=== PATIENT | female | born 1940 | race Caucasian/White ===

== ENCOUNTER 2020-09-03 09:56 | Emergency (ER) | payer MEDICARE, OTHER ==
[~2020-09-03] VITALS: Ht 162.6 cm; Wt 65.8 kg
--- NOTE | 2020-09-03 10:55 | Emergency Department Note ---
History of Present Illnes History of Present Illness Chief Complaint: Extremity Trauma/Pain History of Present Illness This is a 80 year old female fell yesterday pulling weeds and fell to ground hitting head and right hand/wrist. +bruising noted and swelling. no loc. aaox4. ambulatory. +radial pulse. able to move fingers. Historian: Patient, Family Member Arrival Mode: Car [employer] Supervisor Required: No Onset (how long ago): day(s) Location: RIGHT HAND/WRIST Quality: PAIN Radiation: Reports non-radiation Severity: moderate Onset quality: sudden Timing of current episode: constant Progression: unchanged Chronicity: new Context: Denies recent illness Relieving factors: none Exacerbating factors: none Associated symptoms: Reports denies other symptoms Past Medical/Family History Physician Review I have reviewed the patient's past medical and family history. Any updates have been documented here. Past Medical History Recent Fever: No Clinical Suspicion of Infectio: No New/Unexplained Change in Ment: No Past Medical History: Hypothyroidism, Hyperlipedemia Other Surgery: breast augmentation Social History Smoking Cessation: Never Smoker Counseling Performed: No Alcohol Use: None Any Illegal Drug Use: No TB Exposure/Symptoms: No Physically hurt or threatened: No Family History Family history of heart diseas: No Other Any Pre-Existing Lines (PICC,: No Review of Systems Review of Systems Constitutional: Reports no symptoms EENTM: Reports no symptoms Cardiovascular: Reports no symptoms Respiratory: Reports no symptoms Gastrointestinal: Reports no symptoms Genitourinary: Reports no symptoms Musculoskeletal: Reports as per HPI Integumentary: Reports no symptoms Neurological: Reports no symptoms Psychological: Reports no symptoms Endocrine: Reports no symptoms Hematological/Lymphatic: Reports no symptoms Physical Exam Related Data Allergies: Coded Allergies: No Known Allergies (Unverified , 09/03/20) Triage Vital Signs Vital Signs Date Time Temp Pulse Resp B/P (MAP) Pulse Ox O2 Delivery O2 Flow Rate FiO2 09/03/20 10:12 97.2 74 18 139/85 98 Room Air Vital signs reviewed: Yes Physical Exam CONSTITUTIONAL Constitutional: Present well-developed, Present well-nourished HENT HENT: Present normocephalic, Present atraumatic, Present oropharynx clear/moist, Present nose normal HENT L/R: Present left ext ear normal, Present right ext ear normal EYES Eyes: Reports PERRL, Reports conjunctivae normal NECK Neck: Present ROM normal PULMONARY Pulmonary: Present effort normal, Present breath sounds normal CARDIOVASCULAR Cardiovascular: Present regular rhythm, Present heart sounds normal, Present capillary refill normal, Present normal rate GASTROINTESTINAL Abdominal: Present soft, Present nontender, Present bowel sounds normal GENITOURINARY Genitourinary: Present exam deferred SKIN Skin: Present warm, Present dry MUSCULOSKELETAL Musculoskeletal: Present other (RIGHT HAND WITH MILD ECCHYMOSIS DORSAL SURFACE, MILD SWELLING OF WRIST WITH TTP AND DECR ROM, N/V INTACT) NEUROLOGICAL Neurological: Present alert, Present oriented x 3, Present no gross motor or sensory deficits PSYCHOLOGICAL Psychological: Present mood/affect normal, Present judgement normal Results Imaging Imaging results reviewed: Yes Impressions Procedure: [id number] DX/HAND 3+ VIEWS RIGHT Exam Date: 09/03/20 Exam Time: 1053 REPORT STATUS: Signed X-ray 3 views of the wrist. 3 views of the hand. HISTORY: Wrist pain after fall. COMPARISON: None available. FINDINGS: Bone/joints: There is mildly displaced fracture of the distal radius with no clear evidence of intra-articular extension. There is widening of the distal radioulnar joint. There is chondrocalcinosis best seen at the ulnocarpal joint. Soft tissues: There is regional soft tissue swelling. IMPRESSION: 1. Mildly displaced distal radius fracture with no clear evidence of intra-articular extension. 2. Widened distal radioulnar joint can be due to acute ligamentous injury versus chronic ligamentous injury given presence of chondrocalcinosis usually seen with crystalline arthropathy. Signed by: Abimael Jarrell MD on 09/03/2020 11:31 AM Procedures Orthopedic Splinting/Casting Injury: Injury #1 Side: right Upper exremity injury location: wrist Upper extremity immobilizer: aluminum form splint Assessment & Plan Medical Decision Making MDM FALL - CT BRAIN/C-SPINE, RIGHT HAND/WRIST XRAYS R/O CEREBRAL BLEED, CERV FX, WRIST/HAND FX Reassessment Reassessment DC HOME, OTC IBUPROFEN, TYL #3 UD, SPLINT, F/U ORTHO DR BENITEZ Assessment & Plan Final Impression: (1) Distal radius fracture, right Depart Disposition: HOME, SELF-CARE Last Vital Signs Date Time Temp Pulse Resp B/P (MAP) Pulse Ox O2 Delivery O2 Flow Rate FiO2 09/03/20 10:12 97.2 74 18 139/85 98 Room Air MICHELLE TAN MD Sep 03, 2020 10:55
--- NOTE | 2020-09-03 11:35 | Diagnostic Imaging Report ---
X-ray 3 views of the wrist. 3 views of the hand. HISTORY: Wrist pain after fall. COMPARISON: None available. FINDINGS: Bone/joints: There is mildly displaced fracture of the distal radius with no clear evidence of intra-articular extension. There is widening of the distal radioulnar joint. There is chondrocalcinosis best seen at the ulnocarpal joint. Soft tissues: There is regional soft tissue swelling. IMPRESSION: 1. Mildly displaced distal radius fracture with no clear evidence of intra-articular extension. 2. Widened distal radioulnar joint can be due to acute ligamentous injury versus chronic ligamentous injury given presence of chondrocalcinosis usually seen with crystalline arthropathy. Signed by: Abimael Jarrell MD on 09/03/2020 11:31 AM
--- NOTE | 2020-09-03 11:38 | Diagnostic Imaging Report ---
EXAMINATION: Head CT HISTORY: Possible stroke, s/p fall 1 day ago. COMPARISON: None. TECHNIQUE: Helical axial images of the head were obtained. Reformatted coronal and sagittal images from the axial data. Dose modulation, iterative reconstruction, and/or weight based adjustment of the mA/kV was utilized to reduce the radiation dose to as low as reasonably achievable. FINDINGS: Parenchyma: 1. Few scattered and periventricular white matter hypodensities, most likely chronic microvascular changes. 2. No mass or hemorrhage. No CT evidence of acute territorial vascular insult. Extra-axial spaces:No abnormal density. No extra-axial fluid collections Brain volume: Normal for age. Ventricles: No hydrocephalus or displacement. Arteries: No density suggestive of thrombus. Dural sinuses: No abnormal density. Foramen magnum: No mass, Chiari malformation, or basilar invagination. Sella: No obvious mass. Paranasal/mastoid sinuses: Imaged portions unremarkable. Skull/Scalp: No lytic or blastic lesions. No fractures. IMPRESSION: 1. No acute intracranial hemorrhage or cortical infarct. 2. Mild chronic microvascular ischemic changes. Signed by: Dr. Justyna Cespedes M.D. on 09/03/2020 11:35 AM
--- NOTE | 2020-09-03 11:48 | Diagnostic Imaging Report ---
EXAMINATION: CT of the cervical spine HISTORY: Status post fall 1 day ago. COMPARISON: None available TECHNIQUE: Multidetector helical axial images were obtained without contrast from the foramen magnum to T1. Dose modulation, iterative reconstruction, and/or weight based adjustment of the mA/kV was utilized to reduce the radiation dose to as low as reasonably achievable. FINDINGS: Alignment: Straightening of the cervical lordosis which may be related to muscle spasm or positional. Minimal anterolisthesis of C7 on T1. Soft tissues: Normal Vertebrae: Normal height and density. No acute fracture, infection or neoplasm. Chronic endplate degenerative changes from C4 to C7. Degenerative changes: C1-C2: Normal C2-C3: Prominent facet arthrosis on the left without foraminal stenosis. C3-C4: Interbody and left posterior elements fusion. Disc osteophyte complex formation, bilateral uncovertebral and facet arthrosis. Severe left foraminal stenosis. C4-C5: Disc osteophyte complex formation, uncovertebral and facet arthrosis. Severe right and mild left foraminal stenoses. Mild canal stenosis. C5-C6: Disc osteophyte complex formation, uncovertebral and facet arthrosis. Moderate right and moderately severe left foraminal stenosis. Mild canal stenosis. C6-C7: Disc osteophyte complex formation asymmetric to the right, uncovertebral arthrosis. Moderate right foraminal stenosis. Mild canal narrowing. C7-T1: Bilateral facet arthrosis without stenosis. IMPRESSION: 1. No acute cervical spine postraumatic abnormalities. 2. Chronic degenerative changes as above. Note: Acute postraumatic spinal cord, vascular or ligamentous injuries cannot adequately be assessed by CT. Signed by: Dr. Justyna Cespedes M.D. on 09/03/2020 11:45 AM
[2020-09-03] MEDS ORDERED: HYDROCODONE/APAP 5MG-325MG TAB PO NR (12:00)
== END 2020-09-03 12:52 | disposition home or self-care (01) ==
LOC: ER 10:07
DX: S52.501A Unspecified fracture of the lower end of right radius, initial encounter for closed fracture (principal); S00.83XA Contusion of other part of head, initial encounter; S60.221A Contusion of right hand, initial encounter; W01.0XXA Fall on same level from slipping, tripping and stumbling without subsequent striking against object, initial encounter; Y93.H2 Activity, gardening and landscaping; Y92.007 Garden or yard of unspecified non-institutional (private) residence as the place of occurrence of the external cause; E78.5 Hyperlipidemia, unspecified; E03.9 Hypothyroidism, unspecified
CPT/HCPCS: 70450; 72125; 99283

== ENCOUNTER → 2020-09-22 | Day surgery (SDC) | payer MEDICARE ==
[2020-09-19 10:20] LABS: BASOPHILS # (AUTO) 0.1 (0.0-0.1); BASOPHILS % 0.8 % (0.0-1.0); EOSINOPHILS # (AUTO) 0.1 (0.0-0.4); EOSINOPHILS % 0.5 % (0.0-6.0); HEMATOCRIT 37.6 % (34.2-44.1); HEMOGLOBIN 12.5 g/dL (12.0-16.0); LYMPHOCYTES # (AUTO) 1.3 (1.0-3.2); LYMPHOCYTES % 14.1 % (18.0-39.1); MEAN CORPUSCULAR HEMOGLOBIN 31.3 pg (28-32); MEAN CORPUSCULAR HGB CONC 33.2 g/dL (31-35); MEAN CORPUSCULAR VOLUME 94.2 fL (81-99); MONOCYTES # (AUTO) 0.8 (0.2-0.8); NEUTROPHILS % 75.2 % (38.7-80.0); PLATELET COUNT 255 x10e3/uL (140-360); RED BLOOD COUNT 3.99 x10e6/uL (3.6-5.1); RED CELL DISTRIBUTION WIDTH 13.3 % (11.7-14.4)
[~2020-09-22] MED LIST: BUPIVACAINE HCL 0.5% INJ 30 ML VIAL INJ ONE; CEFAZOLIN SOD 1 GM/NS 50ML 100 ML IV ONE; DEXAMETHASONE SOD PHOS INJ 4 MG/ML VIAL ONE; ESTRACE42.5 GM TOP; FENTANYL CITRATE/PF 100MCG/2 ML INJ ONE; HYDROCODONE/APAP 5MG-325MG TAB ONE; KETOROLAC TROMETHAMINE 30 MG/ML VIAL ONE; LEVOTHYROXINE75 MCG PO; LIDOCAINE 1% W/EPINEPHRINE 20 ML VIAL ONE; LIDOCAINE 2%/ EPINEPHRINE 20ML MDV ONE; LIDOCAINE HCL 1% LOCAL INJ 20 ML VIAL ONE; LIDOCAINE HCL 2% LOCAL INJ 5 ML SDV VIAL INJ ONE; MEPERIDINE HCL INJ 25 MG/ML VIAL ONE; ONDANSETRON HCL INJ 2MG/ML 2ML 2 MG/ML VIAL ONE; PROBIOTIC & AC1 EACH PO; PROPOFOL IV EMULSION 10 MG/ML 20 ML VIAL ONE; SEVOFLURANE INHAL SOLN 250 ML PEN BTL ONE; SIMVASTATIN20 MG PO; VIT C PO; VIT D3 PO; ZINC SULFATE220 MG PO
[2020-09-22 16:30] VITALS: BP 149/73
== END | disposition home or self-care (01) ==
LOC: OR 11:46
PROVIDERS: ATTEND Orthopaedic Surgery
DX: S52.571A Other intraarticular fracture of lower end of right radius, initial encounter for closed fracture (principal); M81.0 Age-related osteoporosis without current pathological fracture; N39.0 Urinary tract infection, site not specified; Z01.810 Encounter for preprocedural cardiovascular examination; Z01.812 Encounter for preprocedural laboratory examination; Z01.818 Encounter for other preprocedural examination; Z20.828 Contact with and (suspected) exposure to other viral communicable diseases
CPT/HCPCS: 25609; 36415; 71046; 85025; 93005; C1713 ×8; C1769; J0690; J1100; J1885; J2001 ×2; J2175; J2405; J2704; J3010; U0002

== ENCOUNTER 2020-10-18 13:00 | Outpatient (RCR) | payer MEDICARE ==
[~2020-10-18 13:00] MED LIST changes: -BUPIVACAINE HCL 0.5% INJ 30 ML VIAL INJ ONE; -CEFAZOLIN SOD 1 GM/NS 50ML 100 ML IV ONE; -DEXAMETHASONE SOD PHOS INJ 4 MG/ML VIAL ONE; -FENTANYL CITRATE/PF 100MCG/2 ML INJ ONE; -HYDROCODONE/APAP 5MG-325MG TAB ONE; -KETOROLAC TROMETHAMINE 30 MG/ML VIAL ONE; -LIDOCAINE 1% W/EPINEPHRINE 20 ML VIAL ONE; -LIDOCAINE 2%/ EPINEPHRINE 20ML MDV ONE; -LIDOCAINE HCL 1% LOCAL INJ 20 ML VIAL ONE; -LIDOCAINE HCL 2% LOCAL INJ 5 ML SDV VIAL INJ ONE; -MEPERIDINE HCL INJ 25 MG/ML VIAL ONE; -ONDANSETRON HCL INJ 2MG/ML 2ML 2 MG/ML VIAL ONE; -PROPOFOL IV EMULSION 10 MG/ML 20 ML VIAL ONE; -SEVOFLURANE INHAL SOLN 250 ML PEN BTL ONE
== END 2020-10-19 ==
LOC: OT 13:00
PROVIDERS: ATTEND Orthopaedic Surgery
DX: S52.571D Other intraarticular fracture of lower end of right radius, subsequent encounter for closed fracture with routine healing (principal); M25.531 Pain in right wrist; M25.631 Stiffness of right wrist, not elsewhere classified; R53.1 Weakness
CPT/HCPCS: 97010; 97022 ×3; 97110 ×4; 97165; L3906

== ENCOUNTER 2020-11-02 10:00 | Outpatient (RCR) | payer MEDICARE | END 2020-11-19 | LOC: OT 10:00 | PROVIDERS: ATTEND Orthopaedic Surgery | DX: S52.501A Unspecified fracture of the lower end of right radius, initial encounter for closed fracture (principal); M25.531 Pain in right wrist; M25.631 Stiffness of right wrist, not elsewhere classified; R53.1 Weakness ==

== ENCOUNTER 2020-12-14 11:00 | Outpatient (RCR) | payer MEDICARE | END 2020-12-17 | LOC: OT 11:00 | PROVIDERS: ATTEND Orthopaedic Surgery | DX: S52.501A Unspecified fracture of the lower end of right radius, initial encounter for closed fracture (principal) ==

== ENCOUNTER 2020-12-20 10:00 | Outpatient (RCR) | payer MEDICARE | END 2021-01-17 | LOC: OT 10:00 | PROVIDERS: ATTEND Orthopaedic Surgery | DX: S52.571A Other intraarticular fracture of lower end of right radius, initial encounter for closed fracture (principal) ==

== ENCOUNTER 2022-12-10 13:53 | Outpatient (RCR) | payer MEDICARE | END 2022-12-17 | LOC: PT 13:53 | PROVIDERS: ATTEND Specialist | DX: M70.62 Trochanteric bursitis, left hip (principal); M62.81 Muscle weakness (generalized); R26.2 Difficulty in walking, not elsewhere classified ==

== ENCOUNTER 2023-01-15 09:55 | Outpatient (RCR) | payer MEDICARE | END 2023-01-17 | LOC: PT 09:55 | PROVIDERS: ATTEND Specialist | DX: M70.72 Other bursitis of hip, left hip (principal) ==

== ENCOUNTER 2023-02-14 14:00 | Outpatient (RCR) | payer MEDICARE | END 2023-02-16 | LOC: PT 14:00 | PROVIDERS: ATTEND Specialist | DX: M70.72 Other bursitis of hip, left hip (principal) ==

== ENCOUNTER 2023-02-24 08:00 | Outpatient (RCR) | payer MEDICARE | END 2023-03-19 | LOC: PT 08:00 | PROVIDERS: ATTEND Specialist | DX: M70.62 Trochanteric bursitis, left hip (principal) ==